=== PATIENT | female | born 1940 | race Caucasian/White ===

== ENCOUNTER 2017-08-27 13:55 | Outpatient (CLI) | payer MEDICARE, OTHER | END 2017-08-27 23:59 | disposition home or self-care (01) | LOC: D.MAMMO 13:55 | DX: Z12.31 Encounter for screening mammogram for malignant neoplasm of breast (principal) ==

== ENCOUNTER 2017-10-08 10:30 | Outpatient (CLI) | payer MEDICARE, OTHER | END 2017-10-08 11:00 | disposition left against medical advice (07) | LOC: D.MAMMO 10:30 | DX: R92.8 Other abnormal and inconclusive findings on diagnostic imaging of breast (principal) ==

== ENCOUNTER → 2018-03-21 14:20 | Outpatient (CLI) | payer MEDICARE, OTHER | END | disposition home or self-care (01) | LOC: D.CT 14:20 | DX: N20.0 Calculus of kidney (principal) ==

== ENCOUNTER 2018-03-26 10:22 | Inpatient (IN) | payer MEDICARE, OTHER ==
[~2018-03-26] VITALS: Ht 157.5 cm; Wt 62.7 kg
--- NOTE | ~2018-03-26 | HEMODYNAMI ---
PATIENT:JULIO JIM MEDICAL RECORD: [id number] : 44 LOCATION: D.2238 ADMISSION DATE: 03/28/18 Generatedon:03/29/201815:58 Patient name: JULIO JIM Patient #: [id number] SSN: : Date of study: 03/29/2018 Page: Of Hemodynamic Procedure Report Patient Data Patient Demographics Procedure consent was obtained First Name: JULIO Gender: Female Last Name: DIANDRA : 1940 Middle Initial: S Age: 77 year(s) Patient #: [id number] Race: Unknown Additional ID: [id number] Contact details [address]: [address] [place] [address] [address] State: [place] City: [place] Zip code: [address] Admission Admission Data Admission Date: 03/28/2018 Admission Time: 9:27 Room #: D.2238 Procedure Procedure Types Cath Procedure Peripheral Cath Diagnostic Procedure Kyphoplasty Kyphoplasty Lumbar Procedure Description Procedure Date Procedure Date: 03/29/2018 Procedure Start Time: 15:07 Procedure Staff Name Function Ed Genesis RT Monitor Jet Quiroga MD Performing Physician Judith Negron CRNA Additional personnel Tierney Olearyub Liberty Anton RN Nurse Procedure Data Cath Procedure Fluoroscopy Diagnostic fluoroscopy Total fluoroscopy Time: 7.4 time: 7.4 min min Diagnostic fluoroscopy Total fluoroscopy dose: 177 dose: 177 mGy mGy Procedure Medications Medication Administration Route Dosage Heparin Flush Bag added to field 1 bags (1000units/500ml NS) Lidocaine 1% added to field 20 Hemodynamics Rest Heart Rate: 78 (bpm) Snapshots Pre Cath Intra NCS Post Cath Vital Signs Time Heart Resp SPO2 etCO2 NIBP (mmHg) Rhythm Pain Sedation Rate (ipm) (%) (mmHg) Status Level (bpm) 14:46:18 80 9 100 34.9 156/98(121) NSR 0 (11) 9(A) , No pain 14:50:34 76 17 100 34.9 123/69(96) NSR 0 (11) 9(A) , No pain 14:54:48 78 13 98 36.4 114/63(92) NSR 0 (11) 8(A) , No pain 14:58:58 78 12 98 37.9 111/65(87) NSR 0 (11) 8(A) , No pain 15:03:10 77 11 97 38.6 109/61(81) NSR 0 (11) 8(A) , No pain 15:07:17 76 11 97 37.9 101/59(78) NSR 0 (11) 8(A) , No pain 15:11:21 77 8 97 36.4 105/68(80) NSR 0 (11) 8(A) , No pain 15:15:27 75 10 97 37.9 108/67(84) NSR 0 (11) 8(A) , No pain 15:19:35 76 11 97 37.1 102/67(83) NSR 0 (11) 8(A) , No pain 15:23:06 75 10 97 37.1 102/67(83) NSR 0 (11) 8(A) , No pain 15:27:13 73 10 97 36.3 95/60(75) NSR 0 (11) 8(A) , No pain 15:31:19 74 11 97 36.3 91/58(72) NSR 0 (11) 8(A) , No pain 15:35:23 72 9 97 37.1 90/57(74) NSR 0 (11) 8(A) , No pain 15:39:29 73 9 97 37.9 81/50(70) NSR 0 (11) 8(A) , No pain 15:43:31 76 11 97 35.6 83/55(66) NSR 0 (11) 8(A) , No pain 15:47:32 76 10 97 36.3 82/54(64) NSR 0 (11) 8(A) , No pain 15:51:34 76 10 97 34.8 90/54(68) NSR 0 (11) 8(A) , No pain Medications Time Medication Route Dose Verified Delivered Reason Notes Effe ctiveness by by 14:45:36 Heparin Flush added 1 Jet Chaudhary used for Bag to bags Quiroga Quiroga procedure (1000units/500ml field MD LONG NS) 14:46:04 Lidocaine 1% added 20ml Jet Chaudhary for local to vial Quiroga Quiroga anesthetic field MD LONG Procedure Log Time Note 14:35:16 Ed Genesis RT (R) (CV) sent for patient. Start room use. 14:35:28 Judith Negron CRNA present and monitoring patient for TIVA. 14:35:34 Time tracking: Regular hours (M-F 7:00 - 5:00) 14:35:38 Use device set IR Diagnostic 14:35:40 Sterile Angiographic Pack opened to sterile field. 14:35:41 Bag Decanter (2002S) opened to sterile field. 14:35:42 Tegaderm 4 x 4 (1626W) opened to sterile field. 14:35:54 Plan of Care:Hemodynamics will remain stable., Cardiac rhythm will remain stable., Comfort level will be maintained., Respiratory function will remain adequate., Patient/ family verbilizes understanding of procedure., Procedure tolerated without complication., Recovers from procedure without complications.. 14:36:18 Patient received from Med/Surg to IR Alert and oriented. Tansferred to table in Prone position. 14:36:20 Warm blankets applied, and reji hugger turned on for patient comfort. 14:36:21 Correct patient and procedure confirmed by team. 14:36:22 Signed procedure consent form obtained from patient. 14:36:23 ECG and BP/O2 sat monitors applied to patient. 14:36:25 Full Disclosure recording started 14:36:26 - 14:36:53 SEE ANESTHESIA NOTE FOR PRE PROCEDURE TIVA 14:36:56 - 14:37:01 H&P Date Dictated: 03/29/2018 Within 30 days and on chart.. 14:37:03 Pre-procedure instructions explained to patient. 14:37:04 Pre-op teaching completed and patient verbalized understanding. 14:37:06 Family in waiting room. 14:37:14 Alarms reviewed by R. N. 14:37:15 Sharps counted by scrub and verified by R.N. 14:37:20 Lumbar area was prepped with chlora-prep and draped in sterile fashion 14:45:09 Vital chart was started 14:45:10 Baseline sample Acquired. 14:45:36 Heparin Flush Bag (1000units/500ml NS) 1 bags added to field was administered by Jet Quiroga MD; used for procedure; 14:46:04 Lidocaine 1% 20ml vial added to field was administered by Jet Quiroga MD; for local anesthetic; 14:55:54 Patient NPO since Midnight. 14:57:43 --------ALL STOP TIME OUT------ 14:57:43 Physician arrived 14:57:44 Final Timeout: patient, procedure, and site verified with staff and physician. All members of the team are in agreement. 14:57:47 Lumbar site verified by team. 14:57:53 Sedation plan: TIVA Medication:Propofol 15:06:57 Procedure started. 15:07:02 Local anesthetic to Lumbar area with Lidocaine 1% by Jet Quiroga MD.INITIAL ACCESS ONLY 15:07:07 PARESH AUTOPLEX MIXER W/VHV opened to sterile field. 15:07:08 PARESH CANNULA ACCESS 10 G NEEDLE opened to sterile field. 15:07:08 Paresh BONE BX 11GA kit opened to sterile field. 15:07:08 PARESH 15/2 VERT AUGMENTATION opened to sterile field. 15:29:33 VERTEPLEX 1/2 DOSE LOT#[id number] 15:35:30 Procedure ended.(Physican Out) 15:36:16 Fluoroscopy time 07.40 minutes. 15:36:22 Fluoroscopy dose: 177 mGy 15:36:22 Flurop Dose total: 177 15:36:25 Sharps counted by scrub and verified by R.N. 15:37:07 Insertion/operative site no bleeding no hematoma. 15:37:16 Post Lumbar area:stable 15:37:32 TEGADERM AND 4X4'S APPLIED 15:37:40 SEE ANESTHESIA NOTE FOR POST PROCEDURE TIVA 15:37:47 Post procedure instruction explained to patient.Patient verbalizes understanding. 15:37:47 Procedure and supply charges have been captured, reviewed, submitted an d are correct. 15:52:36 Report given to Med/Surg. 15:52:41 Patient transfered to Med/Surg with Bed. 15:53:17 Vital chart was stopped 15:53:20 Full Disclosure recording stopped Device Usage Item Name Manufacture Quantity Catalog Hospital Part Current Minim al Lot# / Number Charge Number Stock Stock Serial# Code Sterile Cardinal 1 [id number] Angiographic Health Pack Bag Decanter Microtek 1 2001S [id number] 5 (2001S) [employer] Tegaderm 4 x 3M 1 1626W [id number] 5 4 (1626W) PARESH Paresh 1 [phone] 254860 54435 [id number] 5 AUTOPLEX MIXER W/VHV PARESH 15/2 Paresh 1 [phone] 784299 [id number] [id number] 5 VERT AUGMENTATION Paresh BONE [place] 1 [id number] 598861 271939 5 BX 11GA kit PARESH [place] 1 [phone] 300782 99522 [id number] 5 CANNULA ACCESS 10 G NEEDLE Signature Audit [place] Stage Time Signature Unsigned Intra-Procedure 03/29/2018 Ed Hurtado RT 3:53:14 PM Genesis RT (R) (CV) 03/29/2018 (R) (CV) 3:57:20 PM Intra-Procedure 03/29/2018 Ed 3:58:08 PM Genesis RT (R) (CV) Signatures Monitor : Ed Signature : Genesis RT Date : Time : [facility] [address] [id number]
[2018-03-26] MEDS ORDERED: COZAAR50 MG PO (10:31)
[2018-03-26] MEDS ORDERED: ESTRACE1 MG PO (10:31)
[2018-03-26] MEDS ORDERED: VALIUM10 MG PO (10:32)
[2018-03-26] MEDS ORDERED: CALCIUM (10:32)
[2018-03-26] MEDS ORDERED: OXYCONTIN10 MG PO (10:32)
[2018-03-26 11:33] LABS: BASOPHILS 0.1 % (0-2); EOSINOPHILS 0.3 % (0-7); HEMATOCRIT 43.5 % (36.0-48.0); HEMOGLOBIN 14.8 g/dL (12-16); IMMATURE GRANULOCYTES 0.7 % (0-5); LYMPHOCYTES 7.3 % (15-50); MEAN PLATELET VOLUME 9.6 fL (7.4-10.4); MONOCYTES 7.7 % (2-11); NEUTROPHILS 83.9 % (40-80); PLATELET COUNT 339 10x3/uL (130-400); RBC 4.63 10x6/uL (4.00-5.40); RDW 14.2 % (11.5-14.5); WBC 18.9 10x3/uL (4.8-10.8)
[2018-03-26 11:58] LABS: ALBUMIN 3.3 g/dL (3.4-5.0); ANION GAP 7.7 mmol/L (8-16); BILIRUBIN - TOTAL 0.76 mg/dL (0.2-1.3); CALCIUM 9.4 mg/dL (8.5-10.1); CARBON DIOXIDE 32.5 mmol/L (21.0-32.0); CREATININE - SERUM 1.1 mg/dL (0.6-1.3); POTASSIUM - SERUM 4.2 mmol/L (3.5-5.1)
--- NOTE | 2018-03-26 13:39 | NUR ---
PT RESTING, GIVEN BLANKET NO NEEDS VOICED.
[2018-03-26 14:01] LABS: APPEARANCE CLEAR (CLEAR); BILIRUBIN NEGATIVE (NEGATIVE); COLOR STRAW (YELLOW); GLUCOSE NEGATIVE (NEGATIVE); KETONE NEGATIVE (NEGATIVE); NITRITE NEGATIVE (NEGATIVE); PROTEIN TRACE mg/dL (NEGATIVE); SPECIFIC GRAVITY 1.005 (1.005-1.020); UROBILINOGEN NORMAL (NORMAL)
[2018-03-26 14:02] LABS: EPITHELIAL CELLS OCC /hpf (0-5); MUCUS <1+ /lpf (NONE SEEN); RED CELLS - URINE OCC /hpf (0-5)
--- NOTE | 2018-03-26 15:30 | NUR ---
PT RECEIVED TO ROOM 2238 VIA W/C FROM ER. COMPLAINTS OF "SEVERE PAIN" TO BACK. SALINE LOC TO LEFT AC, SITE WITHOUT REDNESS OR EDEMA. ORIENTED TO ROOM AND CALL LIGHT, ENCOURAGING PT TO CALL FOR ASSIST TO BR. DENIES QUESTIONS AT THIS TIME. CL WITHIN REACH. WILL CONTINUE TO MONITOR.
[2018-03-26 16:23] LABS: ERYTHROCYTE SEDIMENTATION RATE 5 mm/hr (0-30)
[2018-03-26 16:29] VITALS: BP 188/85; Ht 157.5 cm; Wt 62.7 kg
--- NOTE | 2018-03-26 20:00 | NUR ---
ASSISTED UP TO BR TO VOID. REPORTS PAIN IN BACK 4. SEARCH OPTIMIZATION ANALYST DILAUDID IN USE WITH NS @ 20 ML/HR INFUSING IN LT AC. ALERT AND ORIENTED X4. IRRITABLE. STATES SHE WAS TOLD THAT THE MRI THAT SHE HAD DONE TODAY WOULD BE READ IN 30 MINUTES BUT HASNT HEARD ANYTHING. EXPLAINED THAT THE DR WOULD DISCUSS RESULTS WITH HER. AMBULATES WELL. NO EDEMA NOTED. RESP EVEN AND NONLABORED. CL IN REACH.
[2018-03-26 20:04] VITALS: BP 184/82
--- NOTE | 2018-03-26 21:16 | NUR ---
REFUSED ORAL STEROIDS. STATES SHE FINISHED TAKING THEM AT HOME. STATES SHE TOOK HER [place]. INFORMED THAT DR. HERNANDEZ HAD ORDERED CLONIDINE PRN FOR ELEVATED B/P AND STATES, "I DONT WANT TO MESS WITH MY BLOOD PRESSURE MEDS BECAUSE THE LAST TIME THEY CHANGED SOMETHING, IT MADE ME SICK FOR DAYS."
--- NOTE | 2018-03-26 23:55 | NUR ---
SPOKE WITH RADIOLOGY. MRI HAS NOT BEEN TRANSCRIBED YET. STATES FINAL REPORT WILL BE AVAILABLE TOMORROW. PRELIMINARY SHOWS COMPRESSION FX OF L1.
[2018-03-27 00:35] VITALS: BP 182/75
--- NOTE | 2018-03-27 00:47 | NUR ---
EXPLAINED TO PT THAT HER B/P IS ELEVATED. SHE HAS AGREED TO TAKE THE CLONIDINE NOW.
--- NOTE | 2018-03-27 01:20 | NUR ---
MEDICATED WITH CLONIDINE ORDERED. WILL CONT TO MONITOR B/P CLOSELY. PT IS ASYMPTOMATIC OTHERWISE. CL IN REACH.
[2018-03-27 04:59] VITALS: BP 122/63
[2018-03-27 07:07] LABS: BASOPHILS 0.1 % (0-2); EOSINOPHILS 0.4 % (0-7); HEMATOCRIT 38.2 % (36.0-48.0); HEMOGLOBIN 12.6 g/dL (12-16); IMMATURE GRANULOCYTES 0.5 % (0-5); LYMPHOCYTES 13.5 % (15-50); MCH 31.4 pg (26.0-34.0); MCV 95.3 fL (80.0-100.0); MEAN PLATELET VOLUME 9.8 fL (7.4-10.4); MONOCYTES 7.3 % (2-11); NEUTROPHILS 78.2 % (40-80); PLATELET COUNT 285 10x3/uL (130-400); RBC 4.01 10x6/uL (4.00-5.40); RDW 14.3 % (11.5-14.5)
[2018-03-27 07:22] LABS: WBC 13.1 10x3/uL (4.8-10.8)
[2018-03-27 07:25] LABS: ALBUMIN 2.5 g/dL (3.4-5.0); ANION GAP 10.4 mmol/L (8-16); BILIRUBIN - TOTAL 0.75 mg/dL (0.2-1.3); CALCIUM 8.1 mg/dL (8.5-10.1); CARBON DIOXIDE 29.7 mmol/L (21.0-32.0); POTASSIUM - SERUM 4.1 mmol/L (3.5-5.1); PROTEIN - SERUM 5.3 g/dL (6.4-8.2)
[2018-03-27 07:26] LABS: CREATININE - SERUM 0.8 mg/dL (0.6-1.3)
--- NOTE | 2018-03-27 07:48 | NUR ---
PT SITTING UP IN BED AWAKE AND ALERT. PT VOICES "I FEEL SO MUCH BETTER. MY PAIN IS BETTER." PT RATES PAIN 3/10 AT THIS TIME. DILAUDID GELATIN POWDER MIXER IN PLACE, REPORTS UNDERSTANDING OF USE OF GELATIN POWDER MIXER. IV TO LEFT AC WITH NS @ KVO, SITE WITHOUT REDNESS OR EDEMA. PT DENIES FURTHER NEEDS AT THIS TIME. CL WITHIN REACH. ENCOURAGED TO CALL WITH NEEDS. CONTINUE POC.
[2018-03-27 09:00] VITALS: BP 175/66
[2018-03-27 09:08] VITALS: BP 152/70
[2018-03-27 12:00] VITALS: BP 161/90
--- NOTE | 2018-03-27 20:10 | NUR ---
LYING IN BED TALKING TO VISITORS. SMILING AND TALKATIVE. ALERT AND ORIENTED X4. RESP EVEN AND NONLABORED. 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 NS @ 30 ML/HR INFUSING IN LT AC WITHOUT DIFF. NO EDEMA NOTED. AMBULATORY. NO DISTRESS. SR ELEVATED X2. CL IN REACH.
[2018-03-27 20:47] VITALS: BP 171/74
--- NOTE | 2018-03-27 20:50 | NUR ---
NONCOMPLIANT WITH MEDS THAT ARE ORDERED. REFUSED COZAAR EARLIER TODAY BUT WAS GIVEN TONIGHT. REFUSED TO TAKE COLACE AND MIRALAX BECAUSE SHE STATES IT MIGHT CAUSE HER IBS TO FLARE UP. REFUSED PO STEROIDS.
[2018-03-28 00:41] VITALS: BP 158/60
--- NOTE | 2018-03-28 02:32 | NUR ---
HAS RESTED WELL SO FAR TONIGHT. PERSONNEL TECHNICIAN MANAGING BACK PAIN WELL. CL IN REACH.
[2018-03-28 04:52] VITALS: BP 150/64
[2018-03-28 07:57] LABS: BASOPHILS 0.1 % (0-2); EOSINOPHILS 2.8 % (0-7); HEMATOCRIT 41.5 % (36.0-48.0); HEMOGLOBIN 13.7 g/dL (12-16); IMMATURE GRANULOCYTES 0.6 % (0-5); MCH 31.6 pg (26.0-34.0); MCV 95.6 fL (80.0-100.0); MEAN PLATELET VOLUME 9.7 fL (7.4-10.4); MONOCYTES 9.6 % (2-11); NEUTROPHILS 59.9 % (40-80); PLATELET COUNT 304 10x3/uL (130-400); RBC 4.34 10x6/uL (4.00-5.40); RDW 14.5 % (11.5-14.5); WBC 12.5 10x3/uL (4.8-10.8)
--- NOTE | 2018-03-28 08:03 | NUR ---
PT SITTING IN BED WITH EYES OPEN. RESPIRATIONS ARE EVEN AND UNLABORED. PT REPORTS PAIN 5/10 IN THE BACK. PT EXPRESSES AGGRIVATION TOWARDS DIETARY SERVICES AND IS REFUSING STEROID. SEE EMAR. BED IS IN LOWEST POSITION. CALL LIGHT AND BED SIDE TABLE WITHIN REACH. PT DENIES PRESENCE OF N/V. WILL CONT TO MONITOR.
[2018-03-28 08:35] LABS: ALBUMIN 2.7 g/dL (3.4-5.0); ANION GAP 10.5 mmol/L (8-16); BILIRUBIN - TOTAL 0.83 mg/dL (0.2-1.3); CALCIUM 7.9 mg/dL (8.5-10.1); CARBON DIOXIDE 31.2 mmol/L (21.0-32.0); CREATININE - SERUM 0.9 mg/dL (0.6-1.3); POTASSIUM - SERUM 3.7 mmol/L (3.5-5.1); PROTEIN - SERUM 5.9 g/dL (6.4-8.2)
[2018-03-28 09:14] VITALS: BP 186/75
--- NOTE | 2018-03-28 09:56 | NUR ---
ASSISTED PT TO TOILET. PT ABLE TO AMBULATE WITH STAND BY ASSIST. PT DENIES PRESENCE OF DIZZINESS WITH POSITION CHANGES.
[2018-03-28 12:00] VITALS: BP 177/94
--- NOTE | 2018-03-28 13:23 | NUR ---
ASSISTED PT TO SHOWER. PT ABLE TO BATHE SELF. COMPLETE LINEN CHANGE. PT ASSISTED BACK TO BED. PT REFUSES HOSPITAL GOWN. PT REFUSES SCDS AT THIS TIME. BED IS IN LOWEST POSITION. CALL LIGHT AND BED SIDE TABLE ARE WITHIN REACH. PUPPET MAKER BUTTON IS WITHIN REACH. PT DENIES FURTHER NEEDS. WILL CONT TO MONITOR.
--- NOTE | 2018-03-28 16:01 | NUR ---
CONSENTS FOR LUMBAR ONE KYPHOPLASTY AND ALL INDICATED PROCEDURES PERFORMED BY DR DANIELS AND ANESTHESIA SIGNED BY PT AND PLACED IN CHART. IR NOTIFIED OF PT HAVING LOVENOX ORDERED. PT DENIES FURTHER QUESTIONS/CONCERNS. BED IS IN LOWEST POSITION. CALL LIGHT AND BEDSIDE TABLE ARE WITHIN REACH. WILL CONT TO MONITOR.
--- NOTE | 2018-03-28 16:32 | NUR ---
OT NOTE: ATTEMPTED EVAL, HOWEVER, PT STATED THAT SHE IS IN SEVERE PAIN WITH MOVEMENT; STATED THAT SHE WAS HAVING KYPHOPLASTY TOMORROW... WILL ATTEMPT TO EVAL FOLLOWING SURGERY. GONZALEZ GLEZ, OTR/L
--- NOTE | 2018-03-28 19:40 | NUR ---
awake and alert ...bed low and srx2 call light is in reach ..iv to left hand recently resited is patent ...no edema no pain..pt aware of npo status at [place] scd is not in place. i explained the importance and encouraged her to wear after surgical procedure lcta pulses intact bowel sounds x4.
[2018-03-28 21:52] VITALS: BP 137/80
[2018-03-29] VITALS (9 sets, daily range): BP systolic 125–155; BP diastolic 52–74
--- NOTE | 2018-03-29 02:34 | NUR ---
BED LOW SRX2 AND CALL LIGHT IN REACH ...NPO...RESTING WITH EYES CLOSED AT THIS TIME
--- NOTE | 2018-03-29 05:16 | NUR ---
RESTING IN BED RESP UNLABORED IV INFUSING WITHOUT DIFFICULTY NO APPPARENT DISTRESS CALL CIARA RAYMUNDO
[2018-03-29 06:15] LABS: BASOPHILS 0.1 % (0-2); EOSINOPHILS 2.8 % (0-7); HEMATOCRIT 38.7 % (36.0-48.0); HEMOGLOBIN 12.8 g/dL (12-16); IMMATURE GRANULOCYTES 0.6 % (0-5); LYMPHOCYTES 20.9 % (15-50); MCH 31.4 pg (26.0-34.0); MCHC 33.1 g/dL (31.0-37.0); MCV 94.9 fL (80.0-100.0); MEAN PLATELET VOLUME 9.5 fL (7.4-10.4); MONOCYTES 9.5 % (2-11); NEUTROPHILS 66.1 % (40-80); RBC 4.08 10x6/uL (4.00-5.40); RDW 14.6 % (11.5-14.5); WBC 13.1 10x3/uL (4.8-10.8)
[2018-03-29 06:21] LABS: PLATELET COUNT 242 10x3/uL (130-400)
[2018-03-29 06:31] LABS: INR 1.03 (0.85-1.17)
[2018-03-29 06:32] LABS: APTT 31.3 SECONDS (22.8-39.4)
[2018-03-29 06:41] LABS: ALBUMIN 2.4 g/dL (3.4-5.0); ANION GAP 10.5 mmol/L (8-16); BILIRUBIN - TOTAL 0.98 mg/dL (0.2-1.3); CALCIUM 7.8 mg/dL (8.5-10.1); CARBON DIOXIDE 27.3 mmol/L (21.0-32.0); CREATININE - SERUM 0.8 mg/dL (0.6-1.3); POTASSIUM - SERUM 3.8 mmol/L (3.5-5.1); PROTEIN - SERUM 5.6 g/dL (6.4-8.2)
--- NOTE | 2018-03-29 07:40 | NUR ---
PT RESTING IN BED WITH EYES CLOSED. RESPIRATIONS ARE EVEN AND UNLABORED. PT IS EASILY AROUSED WITH VERBAL STIMULATION. PT REFUSES SCDS AT THIS TIME. PT REPORTS PAIN 5/10 IN BACK, DILAUDID CLINICAL PRODUCT SPECIALIST IS AVAILABLE AND BUTTON IS WITHIN REACH. PT DENIES N/V AT THIS TIME. PT REPORTS SOME DIZZINESS WITH POSITION CHANGES. WILL MONITOR. BED IS IN LOWEST POSITION, CALL LIGHT AND BEDSIDE TABLE ARE WITHIN REACH. PT DENIES FURTHER NEEDS. WILL CONT TO MONITOR.
--- NOTE | 2018-03-29 13:08 | NUR ---
PRE OP MEDICATIONS ADMINISTERED PER ORDER. SEE EMAR. FAMILY AT PT BEDSIDE. BED IS IN LOWEST POSITION. CALL LIGHT AND BEDSIDE TABLE ARE WITHIN REACH. PT DENIES FURTHER NEEDS.
--- NOTE | 2018-03-29 14:31 | NUR ---
PT OFF FLOOR VIA BED FOR KYPHOPLASTY. FAMILY MEMBERS FOLLOWED TO WAITING ROOM. ROOM DOOR IS SHUT.
--- NOTE | 2018-03-29 16:05 | NUR ---
PT RETURNED TO ROOM VIA BED. PT IS RESTING WITH EYES CLOSED. RESPIRATIONS ARE EVEN AND UNLABORED. PT IS EASILY AROUSED BY VERBAL STIMULATION. DRESSING X 2 TO LOWER BACK ARE C/D/I. SCDS PLACED ON PT AND TURNED ON. FAMILY IS AT BEDSIDE. PT IS LAYING FLAT. PT AND FAMILY MEMBERS EDUCATED ON IMPORTANCE OF LAYING FLAT FOR ONE HOUR. FAMILY MEMBERS VERBALIZED UNDERSTANDING. VSS ARE STABLE. SEE FLOW SHEET. BED IS IN LOWEST POSITION. CALL LIGHT AND BEDSIDE TABLE ARE WITHIN REACH. PT AND PT FAMILY DENIES FURTHER NEEDS AT THIS TIME. WILL CONT TO MONITOR.
--- NOTE | 2018-03-29 16:41 | MORECARE ---
CASE MANAGEMENT DISCHARGE SUMMARY PATIENT: JULIO JIM UNIT: [id number] ADM DATE: 03/28/18 AGE: 77 : 42 SEX: F ROOM/BED: D.2238 AUTHOR: BEVERLEYDOC PHYSICIAN: REFERRING PHYSICIAN: LEONIE MCGREGOR MD DATE OF SERVICE: 03/29/18 Discharge Plan Patient Name: JULIO JIM Facility: [facility]:[place] : 1940 Planned Disposition: Home Anticipated Discharge Date: 03/31/18 Discharge Date: Expected LOS: 3 Initial Reviewer: [email or web address] Initial Review Date: 03/29/2018 Generated: 03/29/18 5:40 pm Comments DCP- Discharge Planning Updated by [email or web address]: Betsy Dee on 03/29/18 3:[address] Patient Name: JULIO JIM Admission Status: ER Accout number: [id number] Admission Date: 03-28-2018 : 1940 Admission Diagnosis: Attending: LEONIE MCGREGOR Current LOS: 1 Anticipated DC Date: 03-31-2018 Planned Disposition: Home Primary Insurance: MEDICARE A & B Discharge Planning Comments: CM MET WITH PATIENT AND SPOUSE (BILL) REGARDING D/C NEEDS AND PLANS. PATIENT STATED HE WILL DRIVE PATIENT HOME AT DISCHARGE AND THERE ARE NO STEPS TO ENTER HOME BUT ONCE INSIDE THERE ARE 5 STEPS UP AND 10 STEPS TO DOWNSTAIRS. PATIENT IS INDEPENDENT WITH HER CARE AND HAS ACCESS TO A WALKER IF NEEDED. PATIENTS PCP IS DR. HERNANDEZ AND USES [facility]. PATIENT REFUSED HOME HEALTH AT THIS TIME. CM WILL CONTINUE TO FOLLOW PATIENT WITH D/C NEEDS AND PLANS. PCP DR. HERNANDEZ [facility] JOYCE JIM (SPOUSE) [phone] Computer Processing Scheduler: Betsy Dee DCPIA - Discharge Planning Initial Assessment Updated by [email or web address]: Betsy Dee on 03/29/18 4:36 pm * Is the patient Alert and Oriented? Yes * How many steps to enter\exit or inside your home? 15 * PCP DR. HERNANDEZ * Pharmacy [facility] * Preadmission Environment Home with Family * ADLs Independent * Equipment Walker * Other Equipment PATIENT HAS ACCESS FOR A WALKER * List name and contact numbers for known caregivers / representatives who currently or will assist patient after discharge: JOYCE JIM (SPOUSE) [phone] * Verbal permission to speak to the caregivers and representatives has been obtained from the patient. Yes * Community resources currently utilized None * Additional services required to return to the preadmission environment? Yes * Can the patient safely return to the preadmission environment? Yes * Has this patient been hospitalized within the prior 30 days at any hospital? No Coverage Notice Reviewer: [email or web address] Stanislav Dee Notice Issued Date-Time: 03/29/2018 16:33 Notice Type: IM Discharge Notice Notice Delivered To: Family Member Relationship to Patient: Spouse Load Manager Name: Eliceo JIM Delivery Method: - Marian Days: Prior Verbal Notification: Recipient Understood Notice: Recipient Signature: Med Rec Note Co-signed by Attending: Coverage Notice Comment: Patient Name: JULIO JIM Page [id number] at 1641 All edits/amendments must be made on the electronic document DICTATION DATE: 03/29/18 1640 WATCH INSPECTOR: ALANNA 03/29/18 1640 RPT#: [id number] DC DATE: STATUS: ADM IN [facility] [address] [place] [address] END OF REPORT
--- NOTE | 2018-03-29 19:25 | NUR ---
AWAKE AND ALERT OX3...BED LOW AND SRX2 CALL LIGHT IN REACH..BEING ASSISTED BY STAFF ABLE TO MAKE NEEDS KNOWN. LCTA BOWEL SOUNDS X4 DRY DRSG X2 ON LOWER BACK LR TOP GRAVITY THROUGH IV LEFT HAND NO EDEMA. TO BED AND SCD ATTATCHED AND ON
--- NOTE | 2018-03-30 02:57 | NUR ---
RESTING WITH EYES CLOSED.. RESP EVEN AND UNLABORED..BED LOW SRX2 AND CALL LIGHT IN REACH
--- NOTE | 2018-03-30 04:51 | NUR ---
ASSISTED UP TO TOILET AMBULATED WELL...BANDAGE X2 TO BACK INTACT WITH OPSITE OVER BOTH NO BLEED THROUGH..REMOVING SCDs AT THIS TIME
[2018-03-30 05:04] LABS: BASOPHILS 0.1 % (0-2); EOSINOPHILS 3.6 % (0-7); HEMATOCRIT 36.8 % (36.0-48.0); HEMOGLOBIN 12.3 g/dL (12-16); IMMATURE GRANULOCYTES 0.5 % (0-5); MCH 31.6 pg (26.0-34.0); MCHC 33.4 g/dL (31.0-37.0); MCV 94.6 fL (80.0-100.0); MEAN PLATELET VOLUME 9.5 fL (7.4-10.4); MONOCYTES 9.1 % (2-11); NEUTROPHILS 66.7 % (40-80); PLATELET COUNT 254 10x3/uL (130-400); RBC 3.89 10x6/uL (4.00-5.40); RDW 14.6 % (11.5-14.5)
[2018-03-30 05:10] LABS: WBC 9.8 10x3/uL (4.8-10.8)
[2018-03-30 05:25] LABS: ALBUMIN 2.3 g/dL (3.4-5.0); ANION GAP 10.4 mmol/L (8-16); BILIRUBIN - TOTAL 1.2 mg/dL (0.2-1.3); CALCIUM 7.6 mg/dL (8.5-10.1); CARBON DIOXIDE 25.4 mmol/L (21.0-32.0); CREATININE - SERUM 0.8 mg/dL (0.6-1.3); POTASSIUM - SERUM 3.8 mmol/L (3.5-5.1); PROTEIN - SERUM 5.3 g/dL (6.4-8.2)
[2018-03-30 05:26] VITALS: BP 129/63
[2018-03-30 08:49] VITALS: BP 141/46
[2018-03-30] MEDS ORDERED: MIRALAX17 GM PO (10:13)
--- NOTE | 2018-03-30 11:07 | MORECARE ---
CASE MANAGEMENT DISCHARGE SUMMARY PATIENT: JULIO JIM UNIT: [id number] ADM DATE: 03/28/18 AGE: 77 : 42 SEX: F ROOM/BED: D.2238 AUTHOR: DARIEL LOWERY PHYSICIAN: REFERRING PHYSICIAN: LEONIE MCGREGRO MD DATE OF SERVICE: 03/30/18 Discharge Plan Patient Name: JULIO JIM Facility: [facility]:[place] : 1940 Planned Disposition: Home Anticipated Discharge Date: 03/31/18 Discharge Date: Expected LOS: 3 Initial Reviewer: [email or web address] Initial Review Date: 03/29/2018 Generated: 03/30/18 12:06 pm Comments DCP- Discharge Planning Updated by [email or web address]: Heydi Porter on 03/30/18 9:[address] Patient Name: JULIO JIM Encounter No: [id number] : 1940 Primary Insurance: MEDICARE A & B Anticipated DC Date: 03-31-2018 Planned Disposition: Home External Planned Provider: : DCP follow-up note: Patient and family in agreement with discharge plan. No changes to plan. Case management will follow and assist as needed. Heydi Porter DCP- Discharge Planning Updated by [id number]: Betsy Dee on 03/29/18 3:[address] Patient Name: JULIO JIM Admission Status: ER Accout number: [id number] Admission Date: 03-28-2018 : 1940 Admission Diagnosis: Attending: LEONIE MCGREGOR Current LOS: 1 Anticipated DC Date: 03-31-2018 Planned Disposition: Home Primary Insurance: MEDICARE A & B Discharge Planning Comments: CM MET WITH PATIENT AND SPOUSE (BILL) REGARDING D/C NEEDS AND PLANS. PATIENT STATED HE WILL DRIVE PATIENT HOME AT DISCHARGE AND THERE ARE NO STEPS TO ENTER HOME BUT ONCE INSIDE THERE ARE 5 STEPS UP AND 10 STEPS TO DOWNSTAIRS. PATIENT IS INDEPENDENT WITH HER CARE AND HAS ACCESS TO A WALKER IF NEEDED. PATIENTS PCP IS DR. HERNANDEZ AND USES [facility]. PATIENT REFUSED HOME HEALTH AT THIS TIME. CM WILL CONTINUE TO FOLLOW PATIENT WITH D/C NEEDS AND PLANS. PCP DR. HERNANDEZ [facility] JOYCE JIM (SPOUSE) [phone] [employer] Instructor: Betsy Dee DCPIA - Discharge Planning Initial Assessment Updated by [id number]: Betsy Dee on 03/29/18 4:36 pm * Is the patient Alert and Oriented? Yes * How many steps to enter\exit or inside your home? 15 * PCP DR. HERNANDEZ * Pharmacy [facility] * Preadmission Environment Home with Family * ADLs Independent * Equipment Walker * Other Equipment PATIENT HAS ACCESS FOR A WALKER * List name and contact numbers for known caregivers / representatives who currently or will assist patient after discharge: JOYCE JIM (SPOUSE) [phone] * Verbal permission to speak to the caregivers and representatives has been obtained from the patient. Yes * Community resources currently utilized None * Additional services required to return to the preadmission environment? Yes * Can the patient safely return to the preadmission environment? Yes * Has this patient been hospitalized within the prior 30 days at any hospital? No Coverage Notice Reviewer: [email or web address] - Betsy Dee Notice Issued Date-Time: 03/29/2018 16:33 Notice Type: IM Discharge Notice Notice Delivered To: Family Member Relationship to Patient: Spouse Piece Dyeing Machine Tender Name: Eliceo JIM Delivery Method: - Marian Days: Prior Verbal Notification: Recipient Understood Notice: Recipient Signature: Med Rec Note Co-signed by Attending: Coverage Notice Comment: Last DP export: 03/29/18 3:41 p Patient Name: JULIO JIM Page [phone] at 1107 All edits/amendments must be made on the electronic document DICTATION DATE: 03/30/181105 CIGAR SORTER: ALANNA 03/30/18 110 RPT#: [id number] DC DATE: STATUS: ADM IN [facility] [address] [place] [address] END OF REPORT
--- NOTE | 2018-03-30 12:13 | NUR ---
IV DC WITH TIP IN TACT. NO S/S OF ACUTE DISTRESS. BATHED AND WAITING ON LUNCH. CL IN PLACE.
--- NOTE | 2018-03-30 12:17 | NUR ---
OT NOTE: PT SITTING UP IN CHAIR. REPORTS PAIN IS MUCH BETTER, JUST SORE AROUND SURGICAL SITE. PT ABLE TO AMB IN ROOM WITH SBA; HAD PT PERFORM TOILET TRANSFERS WITHOUT USE OF HANDRAIL AND WAS ABLE TO PERFORM INDEP. PT WITH GOOD BALANCE DURING AMB. GONZALEZ GLEZ, OTR/L
--- NOTE | 2018-03-30 12:34 | NUR ---
WASTED DILAUDID IN SHARPS. 2.4MG GIVEN.
--- NOTE | 2018-03-30 14:16 | NUR ---
LATE ENTRY 1300.DC INSTRUCTIONS ANDF EDUCATION GIVEN TO PT. NO S/S OF ACUTE DISTRESS. PT ATE LUNCH AND WAS TAKEN DOWN VIA WC BY VOLUNTEER. CARRIED ALL BELONGINGS DOWN.
--- NOTE | 2018-03-31 13:27 | MORECARE ---
CASE MANAGEMENT DISCHARGE SUMMARY PATIENT: JULIO JIM UNIT: [id number] ADM DATE: 03/28/18 AGE: 77 : 44 SEX: F ROOM/BED: D.2238 AUTHOR: DARIEL LOWERY PHYSICIAN: REFERRING PHYSICIAN: LEONIE MCGREGOR MD DATE OF SERVICE: 03/31/18 Discharge Plan Patient Name: JULIO JIM Facility: [facility]:[place] : 1940 Planned Disposition: Home Anticipated Discharge Date: 03/31/18 Discharge Date: 03/30/2018 Expected LOS: 3 Initial Reviewer: [email or web address] Initial Review Date: 03/29/2018 Generated: 03/31/18 2:27 pm Comments DCP- Discharge Planning Updated by [email or web address]: Heydi Porter on 03/30/18 9:[address] Patient Name: JULIO JIM Encounter No: [id number] : 1940 Primary Insurance: MEDICARE A & B Anticipated DC Date: 03-31-2018 Planned Disposition: Home External Planned Provider: : DCP follow-up note: Patient and family in agreement with discharge plan. No changes to plan. Case management will follow and assist as needed. Heydi Porter DCP- Discharge Planning Updated by [email or web address]: Betsy Dee on 03/29/18 3:[address] Patient Name: JULIO JIM Admission Status: ER Accout number: [id number] Admission Date: 03-28-2018 : 1940 Admission Diagnosis: Attending: LEONIE MCGREGOR Current LOS: 1 Anticipated DC Date: 03-31-2018 Planned Disposition: Home Primary Insurance: MEDICARE A & B Discharge Planning Comments: CM MET WITH PATIENT AND SPOUSE (BILL) REGARDING D/C NEEDS AND PLANS. PATIENT STATED HE WILL DRIVE PATIENT HOME AT DISCHARGE AND THERE ARE NO STEPS TO ENTER HOME BUT ONCE INSIDE THERE ARE 5 STEPS UP AND 10 STEPS TO DOWNSTAIRS. PATIENT IS INDEPENDENT WITH HER CARE AND HAS ACCESS TO A WALKER IF NEEDED. PATIENTS PCP IS DR. HERNANDEZ AND USES [facility]. PATIENT REFUSED HOME HEALTH AT THIS TIME. CM WILL CONTINUE TO FOLLOW PATIENT WITH D/C NEEDS AND PLANS. PCP DR. HERNANDEZ [facility] JOYCE JIM (SPOUSE) [phone] Burn Table Operator: Betsy Dee DCPIA - Discharge Planning Initial Assessment Updated by [email or web address]: Betsy Dee on 03/29/18 4:36 pm * Is the patient Alert and Oriented? Yes * How many steps to enter\exit or inside your home? 15 * PCP DR. HERNANDEZ * Pharmacy [facility] * Preadmission Environment Home with Family * ADLs Independent * Equipment Walker * Other Equipment PATIENT HAS ACCESS FOR A WALKER * List name and contact numbers for known caregivers / representatives who currently or will assist patient after discharge: JOYCE JIM (SPOUSE) [phone] * Verbal permission to speak to the caregivers and representatives has been obtained from the patient. Yes * Community resources currently utilized None * Additional services required to return to the preadmission environment? Yes * Can the patient safely return to the preadmission environment? Yes * Has this patient been hospitalized within the prior 30 days at any hospital? No Coverage Notice Reviewer: [id number] - Betsy Dee Notice Issued Date-Time: 03/29/2018 16:33 Notice Type: IM Discharge Notice Notice Delivered To: Family Member Relationship to Patient: Spouse Pulmonologist Name: Eliceo JIM Delivery Method: - Marian Days: Prior Verbal Notification: Recipient Understood Notice: Recipient Signature: Cody Rec Note Co-signed by Attending: Coverage Notice Comment: Last DP export: 03/30/18 10:06 a Patient Name: JULIO JIM Page [id number] at 1327 All edits/amendments must be made on the electronic document DICTATION DATE: 03/31/18 1327 QUILL COLLECTOR: ALANNA 03/31/18 1327 RPT#: [id number] DC DATE:03/30/18 STATUS: DIS IN [facility] [address] [place] [address] END OF REPORT
== END 2018-03-30 14:18 | disposition home or self-care (01) | DRG 516 ==
LOC: OBSVTIME → D.ER 10:22 → OBSVTIME 11:05 → D.EDHOLD 11:05 → D.MS 11:05 → D.EDHOLD 11:22 → D.ER 11:22 → D.MS 11:22 → OBSVTIME 11:22 → D.MS 14:22 → D.EDHOLD 14:22 → D.ER 14:51 → D.MS 03-28 09:27
PROVIDERS: Emergency Medicine; Specialist; ADMIT Internal Medicine Nephrology
PROC: 0QS03ZZ Reposition Lumbar Vertebra, Percutaneous Approach (ICD-10-PCS; principal; 2018-03-29)
PROC: 0QU03JZ Supplement Lumbar Vertebra with Synthetic Substitute, Percutaneous Approach (ICD-10-PCS; 2018-03-29)
DX: S32.019A Unspecified fracture of first lumbar vertebra, initial encounter for closed fracture (principal); N39.0 Urinary tract infection, site not specified; I10 Essential (primary) hypertension

== ENCOUNTER 2018-09-16 09:00 | Outpatient (CLI) | payer MEDICARE, OTHER ==
[2018-03-26 16:29] VITALS: BMI 25.3
[~2018-09-16 09:00] MED LIST: CALCIUM; COZAAR50 MG PO; ESTRACE1 MG PO; MIRALAX17 GM PO; OXYCONTIN10 MG PO; VALIUM10 MG PO
== END 2018-09-16 10:00 | disposition home or self-care (01) ==
LOC: D.MAMMO 09:00
PROVIDERS: ATTEND Clinical Nurse Specialist Family Health
DX: Z12.31 Encounter for screening mammogram for malignant neoplasm of breast (principal)

== ENCOUNTER 2018-10-12 09:00 | Outpatient (CLI) | payer MEDICARE, OTHER ==
[2018-03-26 16:29] VITALS: BMI 25.3
== END 2018-10-12 10:00 | disposition home or self-care (01) ==
LOC: D.MAMMO 09:00
PROVIDERS: ATTEND Clinical Nurse Specialist Family Health
DX: R92.8 Other abnormal and inconclusive findings on diagnostic imaging of breast (principal)

== ENCOUNTER → 2019-12-21 20:54 | Outpatient (CLI) | payer MEDICARE, OTHER ==
[2018-03-26 16:29] VITALS: BMI 25.3
== END | disposition home or self-care (01) ==
LOC: D.MAMMO 13:00
PROVIDERS: ATTEND Family Medicine
DX: Z12.31 Encounter for screening mammogram for malignant neoplasm of breast (principal)